=== PATIENT | female | born 1995 | race Two or more races ===

== ENCOUNTER → 2017-10-24 | Outpatient (CLI) | payer OTHER ==
[~2017-10-24] MED LIST: AMIT10 PO; AMOX50SU PO; Amoxil400 MG/5 M PO; Cipro500 MG PO; ERYT.5TO BOTHEYES; Norco 5-325 Ta1 EACH PO; Pepcid20 MG PO; Prozac20 MG PO; RXAMOX250S PO; RXCODACESY PO; RXNEOPOLHC AU; SLEEPING PILL; Zofran Odt4 MG SL; [UNRECOGNIZED DRUG - REMARK]; [UNRECOGNIZED DRUG - REMARK]
[2017-10-24 19:28] LABS: BASOPHILS ABSOLUTE AUTO 0.02 K/mm3 (0.00-0.23); BASOPHILS PERCENT AUTO 0 % (0-2); EOSINOPHILS ABSOLUTE AUTO 0.01 K/mm3 (0.00-0.68); EOSINOPHILS PERCENT AUTO 0 % (0-6); Hemoglobin 13.1 g/dL (11.5-16.0); IMMATURE GRAN ABSOLUTE AUTO 0.05 K/mm3 (0.00-0.10); IMMATURE GRAN PERCENT AUTO 1 % (0-1); LYMPHOCYTES ABSOLUTE AUTO 1.27 K/mm3 (0.84-5.20); LYMPHOCYTES PERCENT AUTO 13 % (21-46); MONOCYTES ABSOLUTE AUTO 0.69 K/mm3 (0.16-1.47); MONOCYTES PERCENT AUTO 7 % (4-13); Mean Corpuscular HGB 30.3 pg (26.0-34.0); Mean Corpuscular HGB Conc 33.6 g/dL (31.5-36.5); Mean Corpuscular Volume 90 fL (80-100); Mean Platelet Volume 10.9 fL (9.1-12.4); NEUTROPHILS ABSOLUTE AUTO 7.97 K/mm3 (1.96-9.15); NEUTROPHILS PERCENT AUTO 80 % (41-73); Platelet Count 239 K/mm3 (150-400); RDW Coefficient Variation 12.2 % (11.7-14.2); RDW Standard Deviation 39.8 fL (35.1-46.3); Red Blood Cell Count 4.33 M/mm3 (3.80-5.20); White Blood Cell Count 10.01 K/mm3 (4.00-11.30)
[2017-10-24 19:49] LABS: Alanine Aminotransfer (ALT/SGP 20 U/L (12-78); Albumin, Blood 3.4 g/dL (3.4-5.0); Albumin/Globulin Ratio 1.3 (0.8-1.8); Alk Phos 61 U/L (50-136); Anion Gap 8 mmol/L (6-16); Aspartate Aminotrans (AST/SGOT 11 U/L (12-37); Bilirubin, Direct <0.1 mg/dL (0.0-0.3); Bilirubin, Indirect Unable to Calculate mg/dL (0.1-0.7); Bilirubin, Total 0.3 mg/dL (0.1-1.0); Blood Urea Nitrogen 26 mg/dL (8-24); Bun/Creatinine Ratio 34.1 (12.0-20.0); CO2, Blood 24 mmol/L (21-32); Calcium, Blood 8.9 mg/dL (8.5-10.1); Chloride, Blood 108 mmol/L (98-108); Creatinine, Blood 0.76 mg/dL (0.40-1.00); Globulin, Blood 2.7 g/dL (2.2-4.0); Glomerular Filtration Rate >60 (60-); Glucose, Blood 139 mg/dL (70-99); Phosphorus, Blood 3.5 mg/dL (2.5-4.9); Potassium, Blood 3.9 mmol/L (3.5-5.5); Sodium, Blood 140 mmol/L (136-145); Total Protein, Blood 6.1 g/dL (6.4-8.2)
== END ==
LOC: LAB SHORT 17:33 → OLS 17:33
PROVIDERS: Internal Medicine
DX: N18.9 Chronic kidney disease, unspecified (principal); R80.8 Other proteinuria
CPT/HCPCS: 36415; 80053; 82248; 84100; 85025

== ENCOUNTER → 2017-11-10 | Outpatient (CLI) | payer OTHER ==
[2017-11-12 17:12] LABS: Protein, Urine Quantitative 767.8 mg/dL (0.0-11.9)
== END ==
LOC: LAB SHORT 10:00 → OLS 10:00
PROVIDERS: Internal Medicine
DX: N18.9 Chronic kidney disease, unspecified (principal)
CPT/HCPCS: 81050; 82570; 84156

== ENCOUNTER 2018-02-04 07:33 | Day surgery (SDC) | payer OTHER ==
[~2018-02-04] VITALS: Ht 149.9 cm; Wt 58.1 kg
[~2018-02-04 07:33] MED LIST changes: +Depo-Prove150 MG/11 IM; +LORA.5 PO; +LOSA25 PO; +MELA3 PO; +Maxalt Mlt10 MG PO; +PRAZ1 PO; +PRED10 PO; +VITAMIN D-32000 UNIT PO; +Verotin-Gr Cap1 EACH PO; +ZOLP5 PO
== END 2018-02-04 12:43 | disposition home or self-care (01) ==
LOC: ORSCMMR 07:33 → ORD 09:00 → ORSCMMR 12:43
PROVIDERS: Surgery
PROC: 0JB90ZZ Excision of Buttock Subcutaneous Tissue and Fascia, Open Approach (ICD-10-PCS; principal; 2018-02-04 09:00)
DX: L05.02 Pilonidal sinus with abscess (principal); Z79.899 Other long term (current) drug therapy
CPT/HCPCS: 88305; J0694; J2250; J2405; J2710; J2930; J3010; J7120

== ENCOUNTER → 2018-02-27 | Outpatient (CLI) | payer OTHER ==
[2018-02-27 18:38] LABS: Protein, Urine Quantitative 509.5 mg/dL (0.0-11.9)
== END | disposition home or self-care (01) ==
LOC: LAB 10:00 → LAB SHORT 10:00
PROVIDERS: Internal Medicine
DX: R80.8 Other proteinuria (principal); N18.9 Chronic kidney disease, unspecified
CPT/HCPCS: 81050; 82570; 84156

== ENCOUNTER → 2018-06-24 | Outpatient (CLI) | payer OTHER ==
[2018-06-25 12:28] LABS: Protein, Urine Quantitative 262.8 mg/dL (0.0-11.9)
== END | disposition home or self-care (01) ==
LOC: LAB SHORT 17:38 → LAB 17:38 → LAB FUT 05-01 14:15
PROVIDERS: Internal Medicine
DX: R80.8 Other proteinuria (principal)
CPT/HCPCS: 81050; 84156

== ENCOUNTER → 2018-07-09 | Outpatient (CLI) | payer OTHER ==
[2018-07-10 15:39] LABS: Candida species (DNA Probe) Negative (NEGATIVE); G. vaginalis (DNA Probe) Negative (NEGATIVE); T. vaginalis (DNA Probe) Negative (NEGATIVE)
== END | disposition home or self-care (01) ==
LOC: LAB SHORT 16:00 → LAB SRC 16:00
PROVIDERS: Registered Nurse
DX: N89.8 Other specified noninflammatory disorders of vagina (principal)
CPT/HCPCS: 87480; 87510; 87660

== ENCOUNTER → 2018-07-15 | Outpatient (CLI) | payer OTHER ==
[2018-07-15 09:27] LABS: BASOPHILS ABSOLUTE AUTO 0.02 K/mm3 (0.00-0.23); BASOPHILS PERCENT AUTO 0 % (0-2); EOSINOPHILS ABSOLUTE AUTO 0.09 K/mm3 (0.00-0.68); EOSINOPHILS PERCENT AUTO 1 % (0-6); Hematocrit 35.8 % (33.0-51.0); Hemoglobin 12.7 g/dL (11.5-16.0); IMMATURE GRAN ABSOLUTE AUTO 0.04 K/mm3 (0.00-0.10); IMMATURE GRAN PERCENT AUTO 0 % (0-1); LYMPHOCYTES ABSOLUTE AUTO 1.06 K/mm3 (0.84-5.20); LYMPHOCYTES PERCENT AUTO 10 % (21-46); MONOCYTES ABSOLUTE AUTO 0.76 K/mm3 (0.16-1.47); MONOCYTES PERCENT AUTO 8 % (4-13); Mean Corpuscular HGB 30.8 pg (26.0-34.0); Mean Corpuscular HGB Conc 35.5 g/dL (31.5-36.5); Mean Platelet Volume 10.8 fL (9.1-12.4); NEUTROPHILS ABSOLUTE AUTO 8.21 K/mm3 (1.96-9.15); NEUTROPHILS PERCENT AUTO 81 % (41-73); Platelet Count 233 K/mm3 (150-400); RDW Coefficient Variation 12.9 % (11.7-14.2); RDW Standard Deviation 40.2 fL (35.1-46.3); Red Blood Cell Count 4.12 M/mm3 (3.80-5.20); White Blood Cell Count 10.18 K/mm3 (4.00-11.30)
[2018-07-15 09:28] LABS: Mean Corpuscular Volume 87 fL (80-100)
[2018-07-15 09:36] LABS: Alanine Aminotransfer (ALT/SGP 28 U/L (12-78); Albumin, Blood 3.6 g/dL (3.4-5.0); Albumin/Globulin Ratio 1.1 (0.8-1.8); Alk Phos 63 U/L (40-126); Anion Gap 13 mmol/L (6-16); Aspartate Aminotrans (AST/SGOT 15 U/L (12-37); Bilirubin, Total 0.2 mg/dL (0.1-1.0); Blood Urea Nitrogen 20 mg/dL (8-24); Bun/Creatinine Ratio 20.2 (12.0-20.0); CO2, Blood 22 mmol/L (21-32); Calcium, Blood 9.1 mg/dL (8.5-10.1); Chloride, Blood 103 mmol/L (98-108); Creatinine, Blood 0.99 mg/dL (0.40-1.00); Globulin, Blood 3.2 g/dL (2.2-4.0); Glomerular Filtration Rate >60 (60-); Glucose, Blood 116 mg/dL (70-99); Potassium, Blood 3.7 mmol/L (3.5-5.5); Sodium, Blood 138 mmol/L (136-145); Total Protein, Blood 6.8 g/dL (6.4-8.2)
== END ==
LOC: LAB EV 09:22 → LAB SHORT 09:22
PROVIDERS: Emergency Medicine
DX: R55 Syncope and collapse (principal)
CPT/HCPCS: 80053; 85025

== ENCOUNTER → 2018-09-12 | Outpatient (CLI) | payer OTHER | END | disposition home or self-care (01) | LOC: LAB 10:54 → LAB SHORT 10:54 | PROVIDERS: Obstetrics & Gynecology | DX: Z01.419 Encounter for gynecological examination (general) (routine) without abnormal findings (principal) | CPT/HCPCS: G0123 ==

== ENCOUNTER → 2019-02-17 | Outpatient (CLI) | payer OTHER ==
[2019-02-17 14:41] LABS: Protein, Urine Quantitative 371.4 mg/dL (0.0-11.9)
== END | disposition home or self-care (01) ==
LOC: LAB 12:51 → LAB SHORT 12:51 → LAB FUT 01-03 08:45
PROVIDERS: Internal Medicine
DX: R80.8 Other proteinuria (principal)
CPT/HCPCS: 81050; 84156

== ENCOUNTER → 2019-04-18 | Outpatient (CLI) | payer OTHER ==
[2019-04-18 18:00] LABS: Source, Urine Clean Catch
[2019-04-18 18:04] LABS: BASOPHILS ABSOLUTE AUTO 0.04 K/mm3 (0.00-0.23); BASOPHILS PERCENT AUTO 1 % (0-2); EOSINOPHILS ABSOLUTE AUTO 0.17 K/mm3 (0.00-0.68); EOSINOPHILS PERCENT AUTO 2 % (0-6); Hemoglobin 13.9 g/dL (11.5-16.0); IMMATURE GRAN ABSOLUTE AUTO 0.04 K/mm3 (0.00-0.10); IMMATURE GRAN PERCENT AUTO 1 % (0-1); LYMPHOCYTES ABSOLUTE AUTO 2.02 K/mm3 (0.84-5.20); LYMPHOCYTES PERCENT AUTO 24 % (21-46); MONOCYTES ABSOLUTE AUTO 0.76 K/mm3 (0.16-1.47); MONOCYTES PERCENT AUTO 9 % (4-13); Mean Corpuscular HGB Conc 34.8 g/dL (31.5-36.5); Mean Corpuscular Volume 89 fL (80-100); Mean Platelet Volume 10.4 fL (9.1-12.4); NEUTROPHILS ABSOLUTE AUTO 5.53 K/mm3 (1.96-9.15); NEUTROPHILS PERCENT AUTO 65 % (41-73); Platelet Count 241 K/mm3 (150-400); RDW Coefficient Variation 12.4 % (11.7-14.2); RDW Standard Deviation 40.6 fL (35.1-46.3); Red Blood Cell Count 4.49 M/mm3 (3.80-5.20); White Blood Cell Count 8.56 K/mm3 (4.00-11.30)
[2019-04-18 18:15] LABS: Squamous Epithelial Cells Few /hpf (Few); White Blood Cells, Urine 0-2 /hpf (0-5)
[2019-04-18 18:16] LABS: Amorphous Heavy (0-Heavy); Bacteria Not Seen /hpf
[2019-04-18 18:18] LABS: Alanine Aminotransfer (ALT/SGP 70 U/L (12-78); Albumin, Blood 3.5 g/dL (3.4-5.0); Albumin/Globulin Ratio 0.9 (0.8-1.8); Alk Phos 92 U/L (40-126); Anion Gap 10 mmol/L (6-16); Aspartate Aminotrans (AST/SGOT 44 U/L (12-37); Bilirubin, Total 0.3 mg/dL (0.1-1.0); Blood Urea Nitrogen 23 mg/dL (8-24); Bun/Creatinine Ratio 28.8 (12.0-20.0); CO2, Blood 23 mmol/L (21-32); Calcium, Blood 8.6 mg/dL (8.5-10.1); Chloride, Blood 107 mmol/L (98-108); Globulin, Blood 3.7 g/dL (2.2-4.0); Glomerular Filtration Rate >60 (60-); Glucose, Blood 100 mg/dL (70-99); Potassium, Blood 4.2 mmol/L (3.5-5.5); Sodium, Blood 140 mmol/L (136-145); Total Protein, Blood 7.2 g/dL (6.4-8.2)
== END | disposition home or self-care (01) ==
LOC: LAB SHORT 17:57 → LAB EV 17:57
PROVIDERS: Physician Assistant
DX: R31.9 Hematuria, unspecified (principal); R10.9 Unspecified abdominal pain
CPT/HCPCS: 80053; 81015; 85025

== ENCOUNTER → 2020-01-10 | Outpatient (CLI) | payer OTHER ==
[2020-01-10 16:37] LABS: Protein, Urine Quantitative 239.2 mg/dL (0.0-11.9)
== END | disposition home or self-care (01) ==
LOC: LAB SHORT 13:37 → OLS 13:37
PROVIDERS: Internal Medicine
DX: R80.8 Other proteinuria (principal)
CPT/HCPCS: 81050; 84156

== ENCOUNTER → 2021-01-03 | Outpatient (CLI) | payer OTHER ==
[2021-01-03 15:37] LABS: Creatinine, Urine Random 96.7 mg/dL (27.00-270.00); Protein, Urine Random 120.5 mg/dL (0.0-11.9); Protein/Creat Ratio, Ur Random 1.2
== END | disposition home or self-care (01) ==
LOC: LAB SHORT 12:51 → LAB 12:51
PROVIDERS: Internal Medicine
DX: N05.5 Unspecified nephritic syndrome with diffuse mesangiocapillary glomerulonephritis (principal)
CPT/HCPCS: 82570; 84156

== ENCOUNTER 2022-09-25 00:20 | Inpatient (IN) | payer OTHER ==
[~2022-09-25] VITALS: Ht 149.9 cm; Wt 74.3 kg
[~2022-09-25 00:20] MED LIST changes: +ARIPIPRAZOLE10 M4 PO; +CEPH500 PO; +ONDA4ODT MM; -VITAMIN D-32000 UNIT PO; +VITAMIN D5000 UNIT PO
[2022-09-25 00:40] LABS: Source, Urine Clean Catch
[2022-09-25 00:47] LABS: Bilirubin, Urine Neg (Neg); Blood, Urine Neg (Neg); Glucose Qualitative, Urine Neg (Neg); Ketones, Urine Neg (Neg); Leukocyte Esterase, Urine Neg (Neg); Nitrite, Urine Neg (Neg); Protein, Urine 3+ (Neg); Specific Gravity, Urine 1.025 (1.003-1.022); Urobilinogen, Urine NORM (Normal)
[2022-09-25 00:55] LABS: Appearance, Urine Clear (Clear); Color, Urine Yellow (P-Yellow)
[2022-09-25 00:57] LABS: Bacteria Rare /hpf; Mucus Light (0-Heavy); Red Blood Cells, Urine 0-2 /hpf (0-2); Squamous Epithelial Cells Rare /hpf (Few); White Blood Cells, Urine 0-2 /hpf (0-5)
[2022-09-25 01:01] LABS: BASOPHILS ABSOLUTE AUTO 0.03 K/mm3 (0.00-0.23); BASOPHILS PERCENT AUTO 0 % (0-2); EOSINOPHILS PERCENT AUTO 1 % (0-6); Hematocrit 38.3 % (33.0-51.0); Hemoglobin 13.4 g/dL (11.5-16.0); IMMATURE GRAN ABSOLUTE AUTO 0.05 K/mm3 (0.00-0.10); IMMATURE GRAN PERCENT AUTO 0 % (0-1); LYMPHOCYTES ABSOLUTE AUTO 2.11 K/mm3 (0.84-5.20); LYMPHOCYTES PERCENT AUTO 17 % (21-46); MONOCYTES ABSOLUTE AUTO 1.09 K/mm3 (0.16-1.47); MONOCYTES PERCENT AUTO 9 % (4-13); Mean Corpuscular HGB 31.5 pg (26.0-34.0); Mean Corpuscular Volume 90 fL (80-100); Mean Platelet Volume 10.5 fL (9.1-12.4); NEUTROPHILS ABSOLUTE AUTO 9.05 K/mm3 (1.96-9.15); NEUTROPHILS PERCENT AUTO 73 % (41-73); Platelet Count 208 K/mm3 (150-400); RDW Coefficient Variation 12.3 % (11.7-14.2); RDW Standard Deviation 39.9 fL (35.1-46.3); Red Blood Cell Count 4.25 M/mm3 (3.80-5.20); White Blood Cell Count 12.43 K/mm3 (4.00-11.30)
[2022-09-25 01:19] LABS: Albumin, Blood 3.8 g/dL (3.4-5.0); Albumin/Globulin Ratio 1.1 (0.8-1.8); Bilirubin, Total 0.6 mg/dL (0.1-1.0); Bun/Creatinine Ratio 31.2 (12.0-20.0); Calcium, Blood 9.3 mg/dL (8.5-10.1); Creatinine, Blood 0.67 mg/dL (0.40-1.00); Globulin, Blood 3.4 g/dL (2.2-4.0); Potassium, Blood 3.8 mmol/L (3.5-5.5); Total Protein, Blood 7.2 g/dL (6.4-8.2)
[2022-09-25 05:32] VITALS: BP 113/77
[2022-09-25 07:18] VITALS: BP 114/68
--- NOTE | 2022-09-25 08:08 | NUR ---
ADMITTED TO RM 214 FOR GI ISSUES.PT RESTING IN BED AT THIS TIME.
[2022-09-25] MEDS ORDERED: LORA.5 PO (10:13)
[2022-09-25 14:26] VITALS: BP 130/76
--- NOTE | 2022-09-25 15:12 | NUR ---
Spiritual care consult received and processed. Patient is lying in bed and trying to rest. Family is present. She explains about her pain and discomfort but also mentioning that the staff have done a remarkable job of at least dulling the pain so she can try to rest. I make my visit short so she can focus on peaceful thoughts. I provide prayer, a calming presence and establish rapport. Patient showed some signs of better pain managemnet. I will continue to remain available to patient and family.
[2022-09-25 19:10] VITALS: BP 123/72
--- NOTE | 2022-09-25 19:12 | NUR ---
SHIFT SUMMARY STRUGGLED w/ PAIN & ANXIETY TODAY, BUT IMPROVED. NPO. HAS NOT STARTED PASSING GAS.
[2022-09-26 03:45] VITALS: BP 112/71
--- NOTE | 2022-09-26 03:56 | NUR ---
VSS. PT SLEPT ON AND OFF T/O THE NIGHT. MEDICATED FOR PAIN WITH PRNS, OBTAINED ORDER FOR FIORICET FOR MIGRANE MANAGEMENT. MEDICATED FOR NAUSEA MULTIPLE TIMES T/O THE SHIFT, NO EMESIS NOTED. PT REPORTED FEELING HYPOGLYCEMIC TONIGHT, CBG CHECKED AND WAS 89. PT REQUESTED SOME JUICE. PT EDUCATED ABOUT NPO STATUS, NG TUBE, AND FURTHER RISKS. PT INSISITED. TOLLERATED 60 MLS OF APPLE JUICE, REPORTED HYPOGLYCEMIA AND NAUSEA RESOLVED WITH THIS. PT AMBULATING AND VOIDING W/O DIFFICULTY. PT REPORTS PASSING FLATTUS REGULARLY AND EXPERIENCING RELIEF. NO ACUTE EVENTS T/O THE NIGHT. PLAN FOR PT TO POSSIBLY HAVE A SMALL BOWEL FOLLOW THROUGH. THE PATIENT IS CURRENTLY WALKING WITH HAM TRIMMER, IN NO DISTRESS.
[2022-09-26 08:26] VITALS: BP 114/69
--- NOTE | 2022-09-26 10:35 | NUR ---
ZOFRAN ONLY GIVEN PREVENTATIVELY IN PREP FOR SBFT
--- NOTE | 2022-09-26 12:05 | NUR ---
REPORTS INCREASE IN ABD PETIT FROM 1 TO AN 8 AFTER SBFT STARTED.
[2022-09-26 14:56] VITALS: BP 117/86
--- NOTE | 2022-09-26 16:27 | NUR ---
DISCHARGE HAVING MULT LOOSE BM's. TOLERATING SNACKS WELL. DRINKING FLUIDS WELL. EXCITED TO GO HOME.
== END 2022-09-26 16:30 | disposition home or self-care (01) | DRG 389 ==
LOC: ER 00:20 → SURS 00:21
PROVIDERS: Emergency Medicine; ADMIT Student in an Organized Health Care Education/Training Program
DX: K56.609 Unspecified intestinal obstruction, unspecified as to partial versus complete obstruction (principal); C91.01 Acute lymphoblastic leukemia, in remission; I10 Essential (primary) hypertension; E03.9 Hypothyroidism, unspecified; F32.89 Other specified depressive episodes; F51.5 Nightmare disorder; F41.1 Generalized anxiety disorder; G43.909 Migraine, unspecified, not intractable, without status migrainosus; Z87.442 Personal history of urinary calculi; Z98.890 Other specified postprocedural states; Z88.1 Allergy status to other antibiotic agents; Z88.8 Allergy status to other drugs, medicaments and biological substances; Z79.899 Other long term (current) drug therapy
CPT/HCPCS: 36415; 74177; 74250; 80053; 81001; 81025; 82947; 83605; 85025; 96374-59; 96375; 96376; 99285-25; A9270; J1170; J2270; J2405; J3010; J7030; Q9967

== ENCOUNTER 2023-01-09 12:48 | Emergency (ER) | payer OTHER ==
[~2023-01-09] VITALS: Ht 149.9 cm; Wt 71.2 kg
[2023-01-09 13:20] LABS: BASOPHILS ABSOLUTE AUTO 0.03 K/mm3 (0.00-0.23); BASOPHILS PERCENT AUTO 0 % (0-2); EOSINOPHILS ABSOLUTE AUTO 0.08 K/mm3 (0.00-0.68); EOSINOPHILS PERCENT AUTO 1 % (0-6); Hematocrit 40.6 % (33.0-51.0); Hemoglobin 14.1 g/dL (11.5-16.0); IMMATURE GRAN ABSOLUTE AUTO 0.04 K/mm3 (0.00-0.10); IMMATURE GRAN PERCENT AUTO 0 % (0-1); LYMPHOCYTES ABSOLUTE AUTO 1.79 K/mm3 (0.84-5.20); LYMPHOCYTES PERCENT AUTO 20 % (21-46); MONOCYTES ABSOLUTE AUTO 0.76 K/mm3 (0.16-1.47); MONOCYTES PERCENT AUTO 8 % (4-13); Mean Corpuscular HGB 31.2 pg (26.0-34.0); Mean Corpuscular HGB Conc 34.7 g/dL (31.5-36.5); Mean Corpuscular Volume 90 fL (80-100); Mean Platelet Volume 10.6 fL (9.1-12.4); NEUTROPHILS ABSOLUTE AUTO 6.35 K/mm3 (1.96-9.15); NEUTROPHILS PERCENT AUTO 70 % (41-73); Platelet Count 234 K/mm3 (150-400); RDW Coefficient Variation 11.9 % (11.7-14.2); RDW Standard Deviation 39.3 fL (35.1-46.3); Red Blood Cell Count 4.52 M/mm3 (3.80-5.20); White Blood Cell Count 9.05 K/mm3 (4.00-11.30)
[2023-01-09 13:59] LABS: Albumin, Blood 3.8 g/dL (3.4-5.0); Albumin/Globulin Ratio 1.1 (0.8-1.8); Bilirubin, Total 0.5 mg/dL (0.1-1.0); Bun/Creatinine Ratio 27.2 (12.0-20.0); Calcium, Blood 8.6 mg/dL (8.5-10.1); Creatinine, Blood 0.73 mg/dL (0.40-1.00); Globulin, Blood 3.5 g/dL (2.2-4.0); Potassium, Blood 4.9 mmol/L (3.5-5.5); Total Protein, Blood 7.3 g/dL (6.4-8.2)
[2023-01-09 16:24] LABS: Source, Urine Clean Catch
[2023-01-09 16:31] LABS: Appearance, Urine Clear (Clear); Bilirubin, Urine Neg (Neg); Blood, Urine Neg (Neg); Color, Urine Yellow (P-Yellow); Glucose Qualitative, Urine Neg (Neg); Ketones, Urine Neg (Neg); Leukocyte Esterase, Urine 2+ (Neg); Nitrite, Urine Neg (Neg); Protein, Urine 3+ (Neg); Specific Gravity, Urine 1.015 (1.003-1.022); Urobilinogen, Urine NORM (Normal)
[2023-01-09 16:39] LABS: Bacteria Mod /hpf; Red Blood Cells, Urine 0-2 /hpf (0-2); Squamous Epithelial Cells Few /hpf (Few)
[2023-01-09 17:30] VITALS: BP 111/70
[2023-01-09] MEDS ORDERED: Pyridium100 MG PO (18:24)
[2023-01-09] MEDS ORDERED: ONDA4ODT MM (18:24)
[2023-01-09] MEDS ORDERED: CEPH500 PO (18:24)
== END 2023-01-09 18:38 | disposition home or self-care (01) ==
LOC: ER 12:48
PROVIDERS: Emergency Medicine
DX: N39.0 Urinary tract infection, site not specified (principal); R11.0 Nausea; Z88.8 Allergy status to other drugs, medicaments and biological substances; Z88.1 Allergy status to other antibiotic agents; Z79.899 Other long term (current) drug therapy
CPT/HCPCS: 74177; 80053; 81001; 81025; 83690; 85025; 87086; 96361; 96374; 96375; 99284-25; A9270; J1885; J2405; J7030; Q9967

== ENCOUNTER → 2023-09-26 | Outpatient (CLI) | payer OTHER ==
[~2023-09-26] MED LIST changes: +Pyridium100 MG PO
== END ==
LOC: LAB 14:00 → LAB SHORT 14:00
DX: J02.9 Acute pharyngitis, unspecified (principal)
CPT/HCPCS: 87081

== ENCOUNTER 2025-05-31 04:00 | Emergency (ER) | payer OTHER ==
[~2025-05-31] VITALS: Ht 149.9 cm; Wt 77.1 kg
[2025-05-31 05:28] VITALS: BP 142/84
[2025-05-31] MEDS ORDERED: VITAMIN B121000 MCG PO (08:35)
[2025-05-31] MEDS ORDERED: HYDROcodone 5-APAP 325 TAB PO ONE (08:35)
[2025-05-31] MEDS ORDERED: PROZAC2010 PO (08:36)
[2025-05-31] MEDS ORDERED: ASCORBIC ACID500 M1 PO (08:36)
[2025-05-31] MEDS ORDERED: FERSU300 PO (08:36)
[2025-05-31] MEDS ORDERED: LOSA50 PO (08:39)
[2025-05-31] MEDS ORDERED: HYDR1TAB94 PO (08:54)
== END 2025-05-31 09:16 | disposition home or self-care (01) ==
LOC: ER 04:00
DX: S90.32XA Contusion of left foot, initial encounter (principal); Z88.8 Allergy status to other drugs, medicaments and biological substances; Z88.1 Allergy status to other antibiotic agents; Z79.899 Other long term (current) drug therapy; W20.8XXA Other cause of strike by thrown, projected or falling object, initial encounter
CPT/HCPCS: 73630; 99283-25; A9270